=== PATIENT | male | born 1980 | race Asian ===

== ENCOUNTER 2016-11-26 19:13 | Emergency (ER) | payer OTHER ==
[2016-11-26 19:29] VITALS: BP 130/93; PULSE 95; RESP 16; TEMP 97.9; O2SAT 95
[2016-11-26] MEDS ORDERED: TDAP ADULT 0.5 ML INJ (BOOSTRIX) IM ONE (19:29)
--- NOTE | 2016-11-26 19:29 | EDPHY ---
H & P Time Seen by Provider: 11/26/16 19:25 HPI/ROS: CHIEF COMPLAINT: Dog bite HISTORY OF PRESENT ILLNESS: The patient is a 36-year-old man who comes to the emergency department requesting tetanus update. He states that he got bit by dog in his neighborhood about an hour to ago. He has very superficial bite bañuelos to both calves. Mild abrasion, No laceration or puncture bañuelos. REVIEW OF SYSTEMS: Constitutional: denies: chills, fever, recent illness, recent injury EENTM: denies: blurred vision, double vision, nose congestion Respiratory: denies: cough, shortness of breath Cardiac: denies: chest pain, irregular heart rate, lightheadedness, palpitations Gastrointestinal/Abdominal: denies: abdominal pain, diarrhea, nausea, vomiting, blood streaked stools Genitourinary: denies: dysuria, frequency, hematuria, pain Musculoskeletal: denies: joint pain, muscle pain Skin: See HPI Neurological: denies: headache, numbness, paresthesia, tingling, dizziness, weakness Hematologic/Lymphatic: denies: blood clots, easy bleeding, easy bruising Immunologic/allergic: denies: HIV/AIDS, transplant EXAM: GENERAL: Well-appearing, well-nourished and in no acute distress. HEAD: Atraumatic, normocephalic. EYES: Pupils equal round and reactive to light, extraocular movements intact, sclera anicteric, conjunctiva are normal. ENT: TMs normal, nares patent, oropharynx clear without exudates. Moist mucous membranes. NECK: Normal range of motion, supple without lymphadenopathy or JVD. LUNGS: Breath sounds clear to auscultation bilaterally and equal. No wheezes rales or rhonchi. HEART: Regular rate and rhythm without murmurs, rubs or gallops. ABDOMEN: Soft, nontender, normoactive bowel sounds. No guarding, no rebound. No masses appreciated. BACK: No CVA tenderness, no spinal tenderness, step-offs or deformities EXTREMITIES: Normal range of motion, no pitting or edema. No clubbing or cyanosis. NEUROLOGICAL: Cranial nerves II through XII grossly intact. Normal speech, normal gait. 5/5 strength, normal movement in all extremities, normal sensation PSYCH: Normal mood, normal affect. SKIN: 2 small bite bañuelos 1 to each calf. No laceration or puncture. Mild bruising and abrasion. Source: Patient Exam Limitations: No limitations - Medical/Surgical History Hx Asthma: No Hx Chronic Respiratory Disease: No Hx Diabetes: No Hx Cardiac Disease: No Hx Renal Disease: No Hx Cirrhosis: No Hx Alcoholism: No Hx HIV/AIDS: No - Family History Significant Family History: No pertinent family hx - Social History Smoking Status: Never smoked Alcohol Use: None Drug Use: None Constitutional: Initial Vital Signs Temperature (C) 36.6 C 11/26/16 19:27 Heart Rate 95 11/26/16 19:27 Respiratory Rate 16 11/26/16 19:27 Blood Pressure 130/93 H 11/26/16 19:27 O2 Sat (%) 95 11/26/16 19:27 O2 Delivery Mode Room Air Allergies/Adverse Reactions: No Known Allergies Allergy (Unverified 11/26/16 19:26) Home Medications: Medication Instructions Recorded NK [No Known Home Meds] 11/26/16 Medical Decision Making ED Course/Re-evaluation: The patient's wounds were cleaned and dressed. He is requesting a tetanus vaccine. Animal Control was notified. The dog was a PET and up-to-date on vaccinations. Differential Diagnosis: Partial list of the Differential diagnosis considered include but were not limited to; dog bite, tetanus vaccine update and although unlikely based on the history and physical exam, I also considered puncture, foreign body, tendon injury, vascular injury. I discussed these differential diagnoses and the plan with the patient as well as the usual and expected course. The patient understands that the diagnosis is provisional and that in medicine we are not always correct and that further workup is often warranted. Usual and customary warnings were given. All of the patient's questions were answered. The patient was instructed to return to the emergency department should the symptoms at all worsen or return, otherwise to followup with the physician as we discussed. - Data Points Medications Given: Discontinued Medications Diphtheria/Tetanus/Acell Pertussis (Boostrix) 0.5 ml IM .ONCE ONE Stop: 11/26/16 19:30 Last Admin: 11/26/16 19:52 Dose: 0.5 ml Departure - Departure Disposition: Home, Routine, Self-Care Clinical Impression: Dog bite of calf Qualifiers: Encounter type: initial encounter Laterality: unspecified laterality Qualified Code(s): S81.859A - Open bite, unspecified lower leg, initial encounter Condition: Fair Instructions: Animal Bite (ED) Referrals: Anthony AJ [Primary Care Provider] - As per Instructions
== END 2016-11-26 19:54 | disposition home or self-care (01) ==
LOC: CED 19:13
DX: S81.852A Open bite, left lower leg, initial encounter (principal); S81.851A Open bite, right lower leg, initial encounter; Z23 Encounter for immunization; W54.0XXA Bitten by dog, initial encounter

== ENCOUNTER 2016-11-28 13:32 | Emergency (ER) | payer OTHER ==
[2016-11-28 13:48] VITALS: BP 118/94; PULSE 81; RESP 16; TEMP 98.2; O2SAT 97
--- NOTE | 2016-11-28 13:56 | EDPHY ---
H & P Stated Complaint: green area around dog bite area rt calf and left lat leg. Denies fever chil Time Seen by Provider: 11/28/16 13:51 HPI/ROS: CHIEF COMPLAINT: Dog bite HISTORY OF PRESENT ILLNESS: The patient is a 36-year-old man who I saw 2 days ago after dog bite. He has small abrasions to both caths. He noticed some bruising to his right calf today. He was concerned about rabies. When he was here 2 days ago we spoke with dog director [employer] and police. The dog has been vaccinated. The patient was updated for tetanus. REVIEW OF SYSTEMS: Constitutional: denies: chills, fever, recent illness, recent injury EENTM: denies: blurred vision, double vision, nose congestion Respiratory: denies: cough, shortness of breath Cardiac: denies: chest pain, irregular heart rate, lightheadedness, palpitations Gastrointestinal/Abdominal: denies: abdominal pain, diarrhea, nausea, vomiting, blood streaked stools Genitourinary: denies: dysuria, frequency, hematuria, pain Musculoskeletal: denies: joint pain, muscle pain Skin: See HPI Neurological: denies: headache, numbness, paresthesia, tingling, dizziness, weakness Hematologic/Lymphatic: denies: blood clots, easy bleeding, easy bruising Immunologic/allergic: denies: HIV/AIDS, transplant EXAM: GENERAL: Well-appearing, well-nourished and in no acute distress. HEAD: Atraumatic, normocephalic. EYES: Pupils equal round and reactive to light, extraocular movements intact, sclera anicteric, conjunctiva are normal. ENT: TMs normal, nares patent, oropharynx clear without exudates. Moist mucous membranes. NECK: Normal range of motion, supple without lymphadenopathy or JVD. LUNGS: Breath sounds clear to auscultation bilaterally and equal. No wheezes rales or rhonchi. HEART: Regular rate and rhythm without murmurs, rubs or gallops. ABDOMEN: Soft, nontender, normoactive bowel sounds. No guarding, no rebound. No masses appreciated. BACK: No CVA tenderness, no spinal tenderness, step-offs or deformities EXTREMITIES: Normal range of motion, no pitting or edema. No clubbing or cyanosis. NEUROLOGICAL: Cranial nerves II through XII grossly intact. Normal speech, normal gait. 5/5 strength, normal movement in all extremities, normal sensation PSYCH: Normal mood, normal affect. SKIN: Small amount of bruising around right calf dog bite. No sign of wound infection. Source: Patient Exam Limitations: No limitations - Personal History Current Tetanus Diphtheria and Acellular Pertussis (TDAP): Yes Tetanus Vaccine Date: 2016 - Medical/Surgical History Hx Asthma: No Hx Chronic Respiratory Disease: No Hx Diabetes: No Hx Cardiac Disease: No Hx Renal Disease: No Hx Cirrhosis: No Hx Alcoholism: No Hx HIV/AIDS: No Hx Splenectomy or Spleen Trauma: No Other PMH: denies - Family History Significant Family History: No pertinent family hx - Social History Smoking Status: Never smoked Alcohol Use: Sober Drug Use: None Constitutional: Initial Vital Signs Temperature (C) 36.8 C 11/28/16 13:41 Heart Rate 81 11/28/16 13:41 Respiratory Rate 16 11/28/16 13:41 Blood Pressure 118/94 H 11/28/16 13:41 O2 Sat (%) 97 11/28/16 13:41 O2 Delivery Mode Room Air Allergies/Adverse Reactions: No Known Allergies Allergy (Verified 11/28/16 13:41) Home Medications: Medication Instructions Recorded NK [No Known Home Meds] 11/26/16 Medical Decision Making ED Course/Re-evaluation: Patient has a small bruise around the dog bite. No sign of infection or foreign body. He was concerned for rabies. He did not understand instructions were given to him previously. We discussed this at length. He is reassured and now eager to go home. Differential Diagnosis: Partial list of the Differential diagnosis considered include but were not limited to; bruising, dog bite, abrasion and although unlikely based on the history and physical exam, I also considered foreign body, infection, vascular injury. I discussed these differential diagnoses and the plan with the patient as well as the usual and expected course. The patient understands that the diagnosis is provisional and that in medicine we are not always correct and that further workup is often warranted. Usual and customary warnings were given. All of the patient's questions were answered. The patient was instructed to return to the emergency department should the symptoms at all worsen or return, otherwise to followup with the physician as we discussed. Departure - Departure Disposition: Home, Routine, Self-Care Clinical Impression: Dog bite Qualifiers: Encounter type: subsequent encounter Qualified Code(s): W54.0XXD - Bitten by dog, subsequent encounter Condition: Fair Instructions: Animal Bite (ED) Referrals: YRVOSE SOTO,Anthony [Primary Care Provider] - As per Instructions
== END 2016-11-28 14:00 | disposition home or self-care (01) ==
LOC: CED 13:32
DX: S81.851D Open bite, right lower leg, subsequent encounter (principal); W54.0XXD Bitten by dog, subsequent encounter